=== PATIENT | male | born 1990 | race Caucasian/White ===

== ENCOUNTER 2024-02-26 16:29 | Emergency (ER) | payer BC, SELFPAY ==
--- NOTE | ~2024-02-26 | XR_ITS ---
EXAM: XR shoulder RT min 2V DATE: 02/26/2024 17:09 HISTORY: shoulder pain . COMPARISON: None available. FINDINGS: Normal mineralization. No fracture or dislocation. No lytic or blastic lesion. Joint space s are maintained. No erosion or periosteal change. Soft tissues within normal limits. IMPRESSION: No acute osseous finding in the right shoulder. Reviewed, dictated and finalized at location K.
[2024-02-26 16:33] VITALS: BP 150/82; PULSE 117; RESP 20; TEMP 36.4; O2SAT 97
--- NOTE | 2024-02-26 17:06 | PC.NURSE ---
Pt taken for xray at this time
[2024-02-26] MEDS: diazePAM (*CRX) 5 MG TABLET 2.5 MG PO (17:16)
[2024-02-26] MEDS: KETOROLAC 30 MG/ML VIAL (*BKC) IM (17:16)
[2024-02-26 17:19] VITALS: BP 138/92; PULSE 101; RESP 20; O2SAT 99
[2024-02-26 17:47] VITALS: BP 146/79; PULSE 103; RESP 15; TEMP 37.1; O2SAT 98
--- NOTE | 2024-02-26 17:54 | ED.EXTPRO ---
HPI - Extremity Problem General Chief complaint: Extremity Problem,Nontraumatic Stated complaint: right shoulder pain Time Seen by Provider: 02/26/24 16:35 History of Present Illness HPI Narrative: Patient has been moving/packing up for a move, and few days ago injuring his right shoulder, it hurts to move it, and sometimes the pain feels like it goes up to the right side of neck. No focal numbness or weakness, no trauma that he can recall. No chest or abdominal pain Related Data Allergies Allergy/AdvReac Type Severity Reaction Status Date / Time No Known Allergies Allergy Verified 02/26/24 16:36 Review of Systems Review of Systems: All systems reviewed & are unremarkable except as noted in HPI and below Exam Narrative: EXAMINATION OF ORGAN SYSTEMS/BODY AREAS: Constitutional: Vital signs per nursing GENERAL:[No acute distress, non-toxic appearing.] HEAD: Normal with no signs of head trauma. EYES: EOMI, conjunctiva normal ENT: Hearing grossly intact LUNGS: Nonlabored breathing. HEART: [Regular rate and rhythm], normal radial pulses ABD: [Soft], [nontender to palpation] EXT: ROM slightly limited by pain but otherwise no deformity or severe tenderness SKIN: [No rashes or lesions.] NEURO: [Alert and oriented x 3. No gross focal sensory or strength deficits.] PSYCH: Normal affect Course Vital Signs Vital signs: Vital Signs Temperature 97.6 F 02/26/24 16:33 Pulse Rate 117 H 02/26/24 16:33 Respiratory Rate 20 02/26/24 16:33 Blood Pressure 150/82 H 02/26/24 16:33 Pulse Oximetry 97 02/26/24 16:33 Oxygen Delivery Room Air 02/26/24 16:33 Temperature 98.7 F 02/26/24 17:47 Pulse Rate 103 H 02/26/24 17:47 Respiratory Rate 15 02/26/24 17:47 Blood Pressure 146/79 H 02/26/24 17:47 Pulse Oximetry 98 02/26/24 17:47 Oxygen Delivery Room Air 02/26/24 16:33 MDM - Extremity (Nontraumatic) MDM Narrative Medical decision making narrative: Patient presents here with right shoulder pain, he has been moving a lot the last few days, neurovascularly intact, overall benign exam, x-ray is thankfully normal, he is given pain medicine here on re-evaluation does appear much more comfortable, though he states that with movement his shoulder does hurt. I will given follow-up to Orthopedics in pain medication, patient agreeable to this plan and outpatient management with return precautions Discharge Plan Discharge Clinical Impression: Pain in right shoulder Patient Disposition: Home, Self-Care Condition: Stable Instructions: Antibiotic Form, Shoulder Sprain (ED) Additional Instructions: Take medications as prescribed, try to take it easy and avoid any heavy lifting until your shoulder feels better, any can always follow up with orthopedic surgeon if your symptoms do not get better. Prescriptions: New acetaminophen [Tylenol Extra Strength] 500 mg tablet 1,000 mg PO Q6H PRN (Reason: pain) Qty: 50 0RF methocarbamol 750 mg tablet 750 mg PO TID PRN (Reason: muscle spasm) Qty: 30 0RF ibuprofen 600 mg tablet 600 mg PO TID PRN (Reason: fever or pain) Qty: 30 0RF Follow-up/Referrals: Tim Penaloza MD [Physician] - 2 Days UNKNOWN,DOCTOR [Primary Care Provider] -
== END 2024-02-26 17:48 | disposition home or self-care (01) ==
PROVIDERS: Emergency Provider Emergency Medicine
DX: M25.511 Pain in right shoulder (principal)
CPT/HCPCS: 73030; 96372; 99283; A9270; J1885

== ENCOUNTER 2025-09-17 16:57 | Emergency (ER) | payer SELFPAY ==
--- NOTE | ~2025-09-17 | CT_ITS ---
EXAMINATION: CT abdomen pelvis wo con DATE: 09/17/2025 19:57 INDICATION: 34-year-old with lower abdominal pain. Possible kidney stones. TECHNIQUE: Computed tomography (CT) of the abdomen and pelvis was performed without intravenous contrast. Automated exposure control and iterative reconstruction technique were employed. The dose-length product was 1751.95 mGy-cm. COMPARISON: None. FINDINGS: Lung bases do not show acute findings. No focal lesions of liver and spleen. Gallbladder, pancreas do not show acute findings. The kidneys show no evidence of calculi are obstruction. No evidence of small bowel obstruction. Appendix is not visible. No inflammatory changes in the pelvis. No bladder calculus. No acute findings of lumbar spine. Degenerative disc disease at L5-S1 level. IMPRESSION: 1. Limited noncontrast examination is not optimal for evaluation of solid viscera, neoplasms and vascular structures. 2. No calculi or obstruction of the kidneys. 3. Degenerative disc disease lower lumbar spine. Reviewed, dictated and finalized at location T. [facility] IMPRESSION: 1. Limited noncontrast examination is not optimal for evaluation of solid visce ra, neoplasms and vascular structures. 2. No calculi or obstruction of the kidneys. 3. Degenerative disc disease lower lumbar spine.
[2025-09-17 17:41] VITALS: BP 146/85; PULSE 89; RESP 20; TEMP 36.7; O2SAT 98
--- NOTE | 2025-09-17 20:08 | ED.ABDPAIN ---
HPI - Abdominal Pain General Chief Complaint: Abdominal Pain Stated Complaint: lower mid abd pain started about 1hour ago Time Seen by Provider: 09/17/25 19:35 Source: patient Mode of arrival: ambulatory Limitations: no limitations History of Present Illness HPI narrative: This is a 34-year-old male that presents to the emergency department for lower abdominal pain. Ongoing over the last couple of hours. Denies fever, vomiting, hematuria. Related Data Allergies Allergy/AdvReac Type Severity Reaction Status Date / Time adhesive Allergy Mild Hives Verified 09/17/25 17:46 Review of Systems Review of Systems: All systems reviewed & are unremarkable except as noted in HPI and below Exam Narrative: GENERAL: Well-appearing, well-nourished, and in no acute distress. HEAD: Normocephalic, atraumatic. EYES: EOMI. CHEST: Clear to auscultation. No respiratory distress. No wheezes rales or rhonchi HEART: Regular rate and rhythm. No murmur heard. Normal peripheral pulses. ABDOMEN: Soft, nontender, nondistended, normal active bowel sounds. EXTREMITIES: Normal range of motion. No edema. SKIN: Warm, dry, no rash. NEURO: No focal deficits. Alert and oriented x3. PSYCH: Normal mood and affect Course Vital Signs Vital signs: Vital Signs Temperature 98.0 F 09/17/25 17:41 Pulse Rate 89 09/17/25 17:41 Respiratory Rate 20 09/17/25 17:41 Blood Pressure 146/85 H 09/17/25 17:41 Pulse Oximetry 98 09/17/25 17:41 Oxygen Delivery Room Air 09/17/25 17:41 Temperature 98.0 F 09/17/25 17:41 Pulse Rate 89 09/17/25 17:41 Respiratory Rate 20 09/17/25 17:41 Blood Pressure 146/85 H 09/17/25 17:41 Pulse Oximetry 98 09/17/25 17:41 Oxygen Delivery Room Air 09/17/25 17:41 [facility] MDM Narrative Medical decision making narrative: Patient presents to the emergency department for lower abdominal pain, history of kidney stones. He is afebrile and nontoxic appearing. His vitals are stable. Cbc without leukocytosis. Metabolic panel without concerning findings. Urine without evidence of infection. CT abdomen pelvis without acute findings. Patient updated on his workup and agrees with plan of care. Instructed to follow-up with PCP Differential Diagnosis Differential Diagnosis: Lower abdominal pain, kidney stone, UTI, diverticulitis, muscle strain Lab Data [facility] Lab Attestation statement: I personally reviewed the patient's lab results. 09/17/25 20:03 09/17/25 20:03 Labs: Lab Results 09/17/25 Range/Units 20:03 WBC 9.2 (4.5-10.0) K/mm3 RBC 5.08 (4.6-6.20) M/mm3 Hgb 14.0 (14.0-18.0) g/dL Hct 42.4 (42.0-52.0) % MCV 83.5 (80-100) fl MCH 27.6 (26-34) pg MCHC 33.0 (32-36) g/dl RDW 13.2 (11.5-14.5) % Plt Count 351 (150-375) k/mm3 MPV 9.7 (7.4-10.4) fl Immature Gran % (Auto) 0.4 (0-0.5) % Neut % (Auto) 68.9 (45.5-73.1) % Lymph % (Auto) 23.3 (18.3-44.2) % Gordon % (Auto) 6.1 (2.6-8.5) % Eos % (Auto) 0.9 (0-4.4) % Baso % (Auto) 0.4 (0.2-1.2) % Lymph # (Auto) 2.14 (0.9-3.2) K/mm3 Gordon # (Auto) 0.6 (0.1-0.6) K/mm3 Eos # (Auto) 0.1 (0-0.3) K/mm3 Baso # (Auto) 0.0 (0.0-0.1) K/mm3 Abs Immat Gran (auto) 0.04 H (0.00-0.031) K/mm3 Absolute Neuts (auto) 6.3 (1.3-6.7) K/mm3 Absolute Nucleated RBC 0.000 (0.0-0.012) K/mm3 Nucleated RBC % 0.0 (0.0-0.2) % Sodium 136 L (137-145) mmol/L Potassium 4.3 (3.4-5.0) mmol/L Chloride 103 (98-107) mmol/L Carbon Dioxide 27 (22-30) mmol/L Anion Gap 6 (4-12) mmol/L BUN 9 (9-20) mg/dL Creatinine 0.72 (0.7-1.3) mg/dL Estim Creat Clear Calc 169 ml/min Estimated GFR > 60 (59 - ) Glucose 104 (65-110) mg/dL Calcium 9.2 (8.4-10.2) mg/dL Total Bilirubin 0.6 (0.2-1.3) mg/dL AST 43 (17-59) U/L ALT 71 H (6-50) U/L Alkaline Phosphatase 92 (38-126) U/L Total Protein 8.2 (6.3-8.2) g/dL Albumin 4.5 (3.5-5.1) g/dL Lipase 79 (23-300) U/L Urine Color Yellow (Yellow) Urine Appearance Clear (Clear) Urine pH 5.0 (5.0-9.0) Ur Specific [place] 1.017 (1.001-1.035) Urine Protein Negative (Negative) mg/dL Urine Glucose (UA) Negative (Negative) mg/dL Urine Ketones Negative (Negative) mg/dL Ur Blood (Man) Negative (Negative) Urine Nitrate Negative (Negative) Urine Bilirubin Negative (Negative) Urine Urobilinogen 0.2 (<2.0) mg/dL Leukocyte Esterase Rfl Negative (Negative) SHELIA/UL Imaging Data Radiologist's impression: ITS Impressions Abdomen/Pelvis CT 09/17/25 19:58 IMPRESSION: 1. Limited noncontrast examination is not optimal for evaluation of solid viscera, neoplasms and vascular structures. 2. No calculi or obstruction of the kidneys. 3. Degenerative disc disease lower lumbar spine. Critical Care Time Critical Care Time Critical Care Time: No Discharge Plan Discharge Clinical Impression: Abdominal pain, lower Patient Disposition: Home Condition: Stable Instructions: Abdominal Pain (ED) Additional Instructions: Return to the ER if you experience fever, abdominal pain with nausea and vomiting, you are unable to keep down liquids or solids, blood in the stool, pain or burning with urination, blood in the urine or any other symptoms that are concerning to you Follow up with your primary care doctor Patient Language: Kinyarwanda Prescriptions: No Action acetaminophen [Tylenol Extra Strength] 500 mg tablet 1,000 mg PO Q6H PRN (Reason: pain) Qty: 50 0RF methocarbamol 750 mg tablet 750 mg PO TID PRN (Reason: muscle spasm) Qty: 30 0RF ibuprofen 600 mg tablet 600 mg PO TID PRN (Reason: fever or pain) Qty: 30 0RF Follow-up/Referrals: UNKNOWN,DOCTOR [Primary Care Provider]
[2025-09-17 20:11] LABS: Hematocrit 42.4 % (42.0-52.0); Hemoglobin 14.0 g/dL (14.0-18.0); Immature Granulocyte Percent A 0.4 % (0-0.5); Lymphocytes Absolute Auto 2.14 K/mm3 (0.9-3.2); Mean Corpuscular HGB Conc 33.0 g/dl (32-36); Mean Corpuscular Hemoglobin 27.6 pg (26-34); Mean Corpuscular Volume 83.5 fl (80-100); Nucleated Red Blood Cells Absolute Auto 0.000 K/mm3 (0.0-0.012); Nucleated Red Blood Cells Perc 0.0 % (0.0-0.2); Platelet Count Result 351 k/mm3 (150-375); Red Blood Count 5.08 M/mm3 (4.6-6.20); White Blood Count 9.2 K/mm3 (4.5-10.0)
[2025-09-17 20:13] LABS: Add Urine Microscopic? NO; Appearance Urine Clear (Clear); Glucose Urine UA Negative (Negative); Leukocyte Esterase Ur Negative LEU/UL (Negative); Nitrate Urine Negative (Negative); Specific Grav Ur 1.017 (1.001-1.035)
[2025-09-17 20:23] LABS: Alanine Aminotransferase 71 U/L (6-50); Albumin Level 4.5 g/dL (3.5-5.1); Alkaline Phosphatase 92 U/L (38-126); Anion Gap 6 mmol/L (4-12); Aspartate Amino Transferase 43 U/L (17-59); Bilirubin,Total 0.6 mg/dL (0.2-1.3); Blood Urea Nitrogen 9 mg/dL (9-20); Calcium 9.2 mg/dL (8.4-10.2); Carbon Dioxide 27 mmol/L (22-30); Chloride 103 mmol/L (98-107); Estimated CRCL calculation 169 ml/min; Estimated Glomerular Filt Rate > 60; Glucose 104 mg/dL (65-110); Lipase 79 U/L (23-300); Potassium 4.3 mmol/L (3.4-5.0); Sodium 136 mmol/L (137-145); Total Protein 8.2 g/dL (6.3-8.2)
== END 2025-09-17 20:46 | disposition home or self-care (01) ==
LOC: ANHED 20:41
PROVIDERS: Emergency Provider Physician Assistant
DX: R10.30 Lower abdominal pain, unspecified (principal)
CPT/HCPCS: 36415; 74176; 80053; 81003; 83690; 85025; 99284